=== PATIENT | male | born 1960 | race Two or more races ===

== ENCOUNTER 2021-06-15 01:43 | Emergency (ER) | payer BC, OTHER ==
[~2021-06-15] VITALS: Ht 172.7 cm; Wt 106.6 kg
[2021-06-15] MEDS ORDERED: MORPHINE SULFATE INJECTION 2 MG/ML SYRG IM ONE (07:15)
[2021-06-15] MEDS ORDERED: PROMETHAZINE HCL 25 MG/ML 1ML IM ONE (07:15)
[2021-06-15] MEDS ORDERED: MORPHINE SULFATE 4 MG/ML SYR/VIAL IV ONE (07:30)
[2021-06-15] MEDS ORDERED: ONDANSETRON HCL 4 MG/2 ML VIAL IV ONE (07:30)
[2021-06-15] MEDS ORDERED: PRED20TA2 PO (08:24)
[2021-06-15] MEDS ORDERED: MORPHINE SULFATE INJECTION 2 MG/ML SYRG IV ONE (08:30)
[2021-06-15 08:35] VITALS: BP 138/88
== END 2021-06-15 09:13 | disposition home or self-care (01) ==
LOC: ER 01:43
DX: G89.29 Other chronic pain (principal); M54.59 Other low back pain
CPT/HCPCS: 96374; 96375; 96376; 99284; J2270; J2405

== ENCOUNTER 2022-09-22 14:56 | Emergency (ER) | payer BC ==
[~2022-09-22] VITALS: Ht 172.7 cm; Wt 104.0 kg
[~2022-09-22 14:56] MED LIST: PRED20TA2 PO
[2022-09-22] MEDS ORDERED: LIDO5DIS21 TOP (17:08)
[2022-09-22] MEDS ORDERED: CYCL-839 PO (17:08)
[2022-09-22] MEDS ORDERED: IBUP600T28 PO (17:08)
[2022-09-22] MEDS ORDERED: MORPHINE SULFATE 4 MG/ML SYR/VIAL IM ONE (17:15)
[2022-09-22] MEDS ORDERED: ONDANSETRON ODT 4 MG TAB PO ONE (17:15)
[2022-09-22 17:41] VITALS: BP 144/84
[2022-09-22] MEDS ORDERED: KETOROLAC TROMETH 30 MG/ML 1ML VIAL IM ONE (18:30)
[2022-09-22] MEDS ORDERED: HYDROcodone-ACET 10/325MG TAB PO ONE (18:30)
[2022-09-22] MEDS ORDERED: HYDR-4902 PO (19:15)
== END 2022-09-22 19:17 | disposition home or self-care (01) ==
LOC: ER 14:56
DX: G89.29 Other chronic pain (principal); M54.50 Low back pain, unspecified; Z88.6 Allergy status to analgesic agent
CPT/HCPCS: 72100; 96372; 99284; J1885; J2270; Q0162

== ENCOUNTER 2024-04-06 13:37 | Emergency (ER) | payer BC ==
[~2024-04-06] VITALS: Ht 172.7 cm; Wt 105.0 kg
[~2024-04-06 13:37] MED LIST changes: +CYCL-839 PO; +HYDR-4902 PO; +IBUP1TAB5 PO; +LIDO5DIS21 TOP
[2024-04-06 14:35] LABS: Basophils # (auto) 0.1 10 ^3/uL (0-0.2); Basophils % (auto) 0.8 % (0.0-2.0); Eosinophils # (auto) 0.3 10 ^3/uL (0-0.8); Eosinophils % (auto) 4.8 % (0.0-7.0); Hematocrit 42.8 % (41.0-53.0); Hemoglobin 14.7 g/dL (13.5-17.5); Lymphocytes # (auto) 2.2 10 ^3/uL (0.4-5.4); Mean Corpuscular Hgb Conc. 34.4 g/dL (32.0-36.0); Mean Corpuscular Volume 90.2 fL (80.0-100.0); Monocytes # (auto) 0.7 10 ^3/uL (0-1.3); Monocytes % (auto) 10.1 % (0.0-12.0); Neutrophils # (auto) 3.7 10 ^3/uL (1.6-8.6); Neutrophils % (auto) 53.3 % (37.0-80.0); Platelet Count (auto) 202 10^3/uL (140-450); Red Blood Cells 4.74 10^6/uL (4.5-5.90); Red Cell Distribution Width 13.3 % (11.8-14.3)
[2024-04-06 14:44] LABS: Chloride 104 mmol/L (98-107); Potassium 4.2 mmol/L (3.5-5.1); Sodium 136 mmol/L (136-145)
[2024-04-06 14:45] LABS: Anion Gap 7 (5-15); Carbon Dioxide 25 mmol/L (20-31)
[2024-04-06 14:46] LABS: Calcium 10.3 mg/dL (8.7-10.4)
[2024-04-06 14:51] LABS: BUN/Creatinine Ratio 13.5 (10.0-20.0); Blood Urea Nitrogen 14 mg/dL (9-23); Glucose 120 mg/dL (74-106)
[2024-04-06 18:14] LABS: Urine Bacteria None Seen /hpf (None Seen)
[2024-04-06 18:16] VITALS: BP 130/78; PULSE 86; RESP 16; TEMP 98.2; O2SAT 96
[2024-04-06 18:40] LABS: Urine Blood Negative /uL (Negative); Urine Clarity Clear (Clear); Urine Color Yellow (Yellow); Urine Mucus FEW (None Seen); Urine Protein, UAD 1+ (Negative); Urine Specific Gravity 1.029 (1.001-1.035); Urine Urobilinogen 2 mg/dL (Negative); Urine WBC 3 /hpf (0 - 3)
== END 2024-04-06 20:00 | disposition left against medical advice (07) ==
LOC: ER 13:37
DX: K40.20 Bilateral inguinal hernia, without obstruction or gangrene, not specified as recurrent (principal); K42.9 Umbilical hernia without obstruction or gangrene; F17.210 Nicotine dependence, cigarettes, uncomplicated; Z79.52 Long term (current) use of systemic steroids
CPT/HCPCS: 36415; 74176; 80048; 81001; 85025

== ENCOUNTER 2025-04-07 14:22 | Inpatient (IN) | payer MEDICAID ==
[~2025-04-07] VITALS: Ht 172.7 cm; Wt 108.5 kg
--- NOTE | 2025-04-07 15:14 | DVH ---
CLINICAL HISTORY: tia TECHNIQUE: Helical scanning was performed of the head from the skull base to the vertex. Multiplanar reconstructions were performed. This exam was performed according to our departmental dose optimizat ion program. Up-to-date CT equipment and radiation dose reduction techniques are utilized as appropri ate. CTDI 64 DLP 1262 COMPARISON: None FINDINGS: There is no evidence for acute intracranial hemorrhage, acute ischemic changes, mass, mass effect, or extra-axial fluid collection. There is no hydrocephalus or midline shift. There is no effacement of the cerebral sulci and basal subarachnoid cisterns. The saunders-white matter differentiation is well ana ntained. The imaged paranasal sinuses are clear. IMPRESSION: NO ACUTE INTRACRANIAL ABNORMALITY SEEN.
--- NOTE | 2025-04-07 15:24 | ED.PDOC ---
Eye-HPI HPI Comments This is a 64 year-old male with a Hx of HTN, accompanied by daughter, presents to the ED with a chief complaint of blurred vision and dizziness as of yesterday. Patient reports additional symptoms of tremors but reports its likely due to back pain and medications S/P back surgery. Patient has no further complaints at this time and otherwise denies symptoms of migraine, chest pain, palpitations, SOB, fever, chills, or N/V/D. Chief Complaint: Eye Problem Time Seen by MD: 14:39 Primary Care Provider: MATTI MEDELLIN Reviewed Notes: Nurses Notes, Medications, Allergies Allergies: Coded Allergies: NO KNOWN ALLERGIES (Unverified , 06/15/21) Home Meds Active Scripts Hydrocodone-Acetaminophen (Hydrocodone Bitartrate/AC 5-325 mg) 1 Tab Tab, 1 TAB PO BID PRN for 2 Days, #4 TAB 0 Refills Prov:[facility] 09/22/22 Ibuprofen Micronized (Ibuprofen) 600 Mg Tab, 600 MG PO Q8HPRN PRN, #30 TAB 0 Refills Prov:[facility] 09/22/22 Lidocaine (LIDODERM 5% TOPICAL PATCH) 1 Patch Ph, 1 PATCH TOP DAILY PRN, #30 PATCH 1 Refill Prov:[facility] 09/22/22 Cyclobenzaprine Hcl (Cyclobenzaprine Hcl) 10 Mg Tab, 10 MG PO TID, #12 TAB 0 Refills Prov:[facility] 09/22/22 Prednisone (Prednisone) 20 Mg Tab, 40 MG PO DAILY for 10 Days, #20 MG Prov:GEMMA BUSCH 06/15/21 Information Source: Patient Mode of Arrival: Ambulatory Timing: Days Duration: Since onset Eye Location: Bilateral Onset: Spontaneous Associated signs and symptoms: Other (Blurred Vision ) Past Medical History PAST MEDICAL HISTORY: HTN Surgical History (Other): Back Surgery Family History Family History: Reviewed,noncontributory to illness Social History Smoker: Cigarettes Alcohol: Occasionally Drugs: Denies Drug Use Lives In: Home Constitutional: denies: chills, diaphoresis, fatigue, fever, malaise, sweats, weakness, others EENTM: reports: blurred vision; denies: double vision, ear bleeding, ear discharge, ear drainage, ear pain, ear ringing, eye pain, eye redness, hearing loss, mouth pain, mouth swelling, nasal discharge, nose bleeding, nose congestion, nose pain, photophobia, tearing, throat pain, throat swelling, voice changes, others Respiratory: denies: cough, hemoptysis, orthopnea, SOB at rest, shortness of breath, SOB with excertion, stridor, wheezing, others Cardiovascular: denies: chest pain, dizzy spells, diaphoresis, Dyspnea on exertion, edema, irregular heart beat, left arm pain, lightheadedness, palpitations, PND, syncope, others Gastrointestinal: denies: abdomen distended, abdominal pain, blood streaked bowels, constipated, diarrhea, dysphagia, difficulty swallowing, hematemesis, melena, nausea, poor appetite, poor fluid intake, rectal bleeding, rectal pain, vomiting, others Genitourinary: denies: burning, dysuria, flank pain, frequency, hematuria, incontinence, penile discharge, penile sore, pain, testicle pain, testicle swelling, urgency, others Neurological: denies: dizziness, fainting, headache, left sided numbness, left sided weakness, numbness, paresthesia, pre-existing deficit, right sided numbness, right sided weakness, seizure, speech problems, tingling, tremors, weakness, others Musculoskeletal: denies: back pain, gout, joint pain, joint swelling, muscle pain, muscle stiffness, neck pain, others Integumetry: denies: bruises, change in color, change in hair/nails, dryness, laceration, lesions, lumps, rash, wounds, others Allergic/Immunocompromised: denies: Difficulty Healing, Frequent Infections, Hives, Itching, others Hematologic/Lymphatic: denies: anemia, blood clots, easy bleeding, easy bruising, swollen glands, others Endocrine: denies: excessive hunger, excessive sweating, excessive thirst, excessive urination, flushing, intolerance to cold, intolerance to heat, unexplained weight gain, unexplained weight loss, others Psychiatric: denies: anxiety, bipolar disorder, depression, hopeless, panic disorder, schizophrenia, sleepless, suicidal, others All Other Systems: Reviewed and Negative Physical Exam General Appearance: Moderate Distress HEENT: Normal ENT Inspection, Pharynx Normal, TMs Normal Neck: Full Range of Motion, Non-Tender, Normal, Normal Inspection Respiratory: Chest Non-Tender, Lungs Clear, No Accessory Muscle Use, No Respiratory Distress, Normal Breath Sounds Cardiovascular: No Edema, No JVD, No Murmur, No Gallop, Normal Peripheral Pulses, Regular Rate/Rhythm Breast Exam: Deferred Gastrointestinal: No Organomegaly, Non Tender, No Pulsatile Mass, Normal Bowel Sounds, Soft Genitalia: Deferred Pelvic: Deferred Rectal: Deferred Extremities: No calf tenderness, Normal capillary refill, Normal inspection, Normal range of motion, Non-tender, No pedal edema Musculoskeletal : Apperance: Normal Neurologic: Alert, 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 Was a procedure done?: No EENT DIFF Eye: Allergic, Bacterial, Viral, Corneal Abrasion X-Ray, Labs, Meds, VS Vital Signs Date Time Temp Pulse Resp B/P (MAP) Pulse Ox O2 Delivery O2 Flow Rate FiO2 04/07/25 16:30 80 18 96 Room Air* 0 21 04/07/25 16:30 98.2 80 18 131/80 (97) 96 98.2 04/07/25 16:26 80 18 131/80 (97) 96 04/07/25 14:24 99.3 64 18 139/74 98 99.3 Lab Test 04/07/25 15:15 Range/Units White Blood Count 7.8 4.4-10.8 10^3/uL Red Blood Count 4.80 4.5-5.90 10^6/uL Hemoglobin 14.7 13.5-17.5 g/dL Hematocrit 42.8 41.0-53.0 % Mean Corpuscular Volume 89.2 80.0-100.0 fL Mean Corpuscular Hemoglobin 30.7 28.0-32.0 pg Mean Corpuscular Hemoglobin Concent 34.4 32.0-36.0 g/dL Red Cell Distribution Width 13.5 11.8-14.3 % Platelet Count 188 140-450 10^3/uL Mean Platelet Volume 10.9 H 6.9-10.8 fL Neutrophils (%) (Auto) 68.4 37.0-80.0 % Lymphocytes (%) (Auto) 24.1 10.0-50.0 % Monocytes (%) (Auto) 6.1 0.0-12.0 % Eosinophils (%) (Auto) 0.5 0.0-7.0 % Basophils (%) (Auto) 0.9 0.0-2.0 % Neutrophils # (Auto) 5.3 1.6-8.6 10 ^3/uL Lymphocytes # (Auto) 1.9 0.4-5.4 10 ^3/uL Monocytes # (Auto) 0.5 0-1.3 10 ^3/uL Eosinophils # (Auto) 0 0-0.8 10 ^3/uL Basophils # (Auto) 0.1 0-0.2 10 ^3/uL Nucleated Red Blood Cells 0.0 % Sodium Level 138 136-145 mmol/L Potassium Level 4.1 3.5-5.1 mmol/L Chloride Level 106 98-107 mmol/L Carbon Dioxide Level 20 20-31 mmol/L Anion Gap 12 5-15 Blood Urea Nitrogen 21 9-23 mg/dL Creatinine 1.04 0.700-1.30 mg/dL Glomerular Filtration Rate Calc 80 >90 mL/min BUN/Creatinine Ratio 20.2 H 10.0-20.0 Serum Glucose 99 74-106 mg/dL Calcium Level 9.8 8.7-10.4 mg/dL Troponin I High Sensitivity 5 </=54 ng/L [place] [id number] Ph: [phone] DIAGNOSTIC IMAGING Diagnostic Imaging Report : [id number] Signed PATIENT: ERIC THOMAS ACCT: [id number] UNIT: [id number] : 1960 LOC: ER ROOM / BED: / AGE / SEX: 64 / M ADM STATUS: REG ER SERVICE [id number] ORDERING PHYSICIAN: ELDER HOBBS MD PROCEDURE(s): HWOCT - HEAD WITHOUT CONTRAST REASON: tia ORDER NUMBER(s): [id number], ACCESSION NUMBER(s): [id number] CLINICAL HISTORY: tia TECHNIQUE: Helical scanning was performed of the head from the skull base to the vertex. Multiplanar reconstructions were performed. This exam was performed according to our departmental dose optimization program. Up-to-date CT equipment and radiation dose reduction techniques are utilized as appropriate. CTDI 64 DLP 1262 COMPARISON: None FINDINGS: There is no evidence for acute intracranial hemorrhage, acute ischemic changes, mass, mass effect, or extra-axial fluid collection. There is no hydrocephalus or midline shift. There is no effacement of the cerebral sulci and basal subarachnoid cisterns. The saunders-white matter differentiation is well maintained. The imaged paranasal sinuses are clear. IMPRESSION: NO ACUTE INTRACRANIAL ABNORMALITY SEEN. Patient alert. Complaining of dizziness. CT of the head reviewed does not show any acute process. Vitals stable. Answering questions. Has good muscle strength. Possible TIA. Possibly will need MRI. Explained to the family. Continue monitoring. Time of 1ST Reevaluation: 15:46 Reevaluation 1ST: Unchanged Patient Education/Counseling: Diagnosis, Treatment Family Education/Counseling: Diagnosis, Treatment SEPSIS Sepsis Screen Date sepsis recognized/suspect: Apr 07, 2025 Time Sepsis recognized/suspect: 5 Recent Procedure: No On Antibiotic Therapy: No Respiratory Rate >20: No Heart Rate >90: No Temp<36 C (96.8 F) or >38.3 C: No SBP <90 or MAP <65 mmHG: No New Acute Mental Status Change: No Is the patient on CPAP, BIPAP,: No Physician Orders Head Without Contrast (04/07/25 14:46) Vital Signs Date Time Temp Pulse Resp B/P (MAP) Pulse Ox O2 Delivery O2 Flow Rate FiO2 04/07/25 16:30 80 18 96 Room Air* 0 21 04/07/25 16:30 98.2 80 18 131/80 (97) 96 98.2 04/07/25 16:26 80 18 131/80 (97) 96 04/07/25 14:24 99.3 64 18 139/74 98 99.3 Laboratory Tests Test 04/07/25 15:15 White Blood Count 7.8 10^3/uL (4.4-10.8) Departure 1 Departure Time of Disposition: 17:15 Impression: Primary Impression: TIA (transient ischemic attack) Additional Impression: Autonomic disorder Disposition: ADMITTED INPATIENT Admit to: Med Surg Condition: Guarded Critical Care Note Critical Care Time?: No Stability Stability form required: No Heart Score Heart Score: Heart Score Response (Comments) Value History N/A 0 EKG N/A 0 Age N/A 0 Risk Factors N/A 0 Troponin N/A 0 Total 0 I personally scribed for ELDER HOBBS MD ([email or web address]) on 04/07/25 at 15:24. Electronically submitted by Kerline Hsu (Transmit Promo). I personally scribed for ELDER HOBBS MD ([email or web address]) on 04/07/25 at 17:02. Electronically submitted by Kerline Hsu (Transmit Promo). ELDER HOBBS MD Apr 07, 2025 15:24
[2025-04-07 16:30] VITALS: PULSE 80; RESP 18; O2SAT 96
[2025-04-07 16:31] LABS: Hematocrit 42.8 % (41.0-53.0); Hemoglobin 14.7 g/dL (13.5-17.5); Mean Corpuscular Hemoglobin 30.7 pg (28.0-32.0); Mean Corpuscular Volume 89.2 fL (80.0-100.0); Nucleated Red Blood Cells % 0.0 %
[2025-04-07 16:41] LABS: Chloride 106 mmol/L (98-107); Potassium 4.1 mmol/L (3.5-5.1); Sodium 138 mmol/L (136-145)
[2025-04-07 16:42] LABS: Anion Gap 12 (5-15); Calcium 9.8 mg/dL (8.7-10.4)
[2025-04-07 16:47] LABS: BUN/Creatinine Ratio 20.2 (10.0-20.0); Blood Urea Nitrogen 21 mg/dL (9-23); Glucose 99 mg/dL (74-106)
[2025-04-07 16:54] LABS: Carbon Dioxide 20 mmol/L (20-31)
[2025-04-07] MEDS ORDERED: ONDANSETRON HCL 4 MG/2 ML VIAL IV PRN (20:30)
[2025-04-07 21:11] LABS: Alkaline Phosphatase 79 U/L (46-116); Magnesium 2.3 mg/dL (1.6-2.6)
[2025-04-07 21:12] LABS: Bilirubin, Direct 0.1 mg/dL (<0.3); Bilirubin, Total 0.4 mg/dL (0.2-1.0)
[2025-04-07 21:23] LABS: Alanine Aminotransferase 65 U/L (7-40); Albumin 5.0 g/dL (3.2-4.8); Total Protein 8.2 g/dL (5.7-8.2)
--- NOTE | 2025-04-07 22:30 | DVH ---
Carotid Duplex Clinical History: decreased blurry vision, rule out stenosis Comparison: None Technique: Duplex Doppler evaluation of the extracranial carotid and vertebral arteries including color Doppler and spectral/pulsed waveform analysis was performed. Findings: RIGHT SIDE: The peak systolic velocities are 106 cm/s in the CCA, 83 cm/s in the ICA. The ICA/CCA ratio is 0.9. The external carotid artery is patent with peak systolic velocity of 130 cm/s proximally. There is appropriate antegrade flow in the right vertebral artery. LEFT SIDE: The peak systolic velocities are 94 cm/s in the CCA, 86 cm/s in the ICA. The ICA/CCA ratio is 0.9. The external carotid artery is patent with peak systolic velocity of 97 cm/s proximally. There is appropriate antegrade flow in the left vertebral artery. IMPRESSION: 1. No hemodynamically significant stenosis noted in the right carotid system. 2. No hemodynamically significant stenosis noted in the left carotid system. Reference: Radiology 2003; 229:340-346 Normal ICA PSV is <125 cm/sec and no plaque or intimal thickening is visible sonographically addition al criteria include ICA/CCA PSV ratio <2.0 and ICA EDV <40 cm/sec <50% ICA stenosis ICA PSV is <125 cm/sec and plaque or intimal thickening is visible sonographically additional criteria include ICA/CCA PSV ratio <2.0 and ICA EDV <40 cm/sec 50-69% ICA stenosis ICA PSV is 125-230 cm/sec and plaque is visible sonographically additional criter ia include ICA/CCA PSV ratio of 2.0-4.0 and ICA EDV of 40-100 cm/sec 70% ICA stenosis but less than near occlusion ICA PSV is >230 cm/sec and visible plaque and luminal narrowing are seen at saunders-scale and color Doppler ultrasound (the higher the Doppler parameters lie above the threshold of 230 cm/sec, the greater the likelihood of severe disease) additional criteria include ICA/CCA PSV ratio >4 and ICA EDV >100 cm/sec
[2025-04-07 23:46] VITALS: BP 117/68; PULSE 55; RESP 20; TEMP 98.3; O2SAT 95; O2SAT 96
[2025-04-08] VITALS (10 sets, daily range): BP systolic 114–128; BP diastolic 66–88; PULSE 51–77; RESP 17–18; TEMP 97.1–98.6; O2SAT 95–98
--- NOTE | 2025-04-08 | DVHHPRES ---
History of Present Illness Resident Creating Document: ANTHONY AMIN RESIDENT History of Present Illness This is a 64-year-old male with a past medical history of hypertension(has not take medication in the last 3 weeks as daughter is a nurse and checks BP- has been on the lower side), chronic back pain for which surgery has been done 2 years ago, surgical history of umbilical hernia repair, came with chief complaints of blurring of vision, tremors at rest and slight dizziness. Patient reports that the blurring of vision began yesterday when he was working and has remained till today, associated with slight dizziness and reports it was worsening which prompted him to visit the emergency room. He reports that his symptoms have no aggravating or relieving factors. On inquiry, patient states that the only medication he has been taking is tramadol for his back pain and the new medication he has started was 1 month ago for insomnia which was zolpidem, given by his son. Patient has been taking 3 tablets of zolpidem per night. On inquiry if he takes any cyclobenzaprine, patient denied it. He denies any fever, chills, nausea, vomiting, slurring of speech, weakness in any part of the body, shortness of breath, ringing of ears, change in bowel or bladder habits and his recent travel was 3 months ago to [place]. On arrival, vitals were normal, troponin negative, WBC and BMP were normal. We are admitting the patient for further investigation, workup and management. Past medical history: As stated above Past surgical history: As stated above family history: Denies any Social history: drink 6 beers on the weekend and 4 cigarettes on the weekend, denies any illicit drug abuse Allergies: None Home medication: Tramadol, multivitamins and zolpidem PCP: Does not have one Code status: Full code Review of Systems Constitutional: Yes: Other (resting tremors); No: Fever, Chills, Sweats, Weakness, Malaise Eyes: Vision change; No: Pain, Conjunctivae inflammation, Eyelid inflammation, Other, Redness ENT: No: Ear pain, Ear discharge, Nose pain, Nose discharge, Nose congestion, Mouth pain, Mouth swelling, Throat pain, Throat swelling, Other Respiratory: No: Cough, Dry, Shortness of breath, SOB with excertion, Wheezing, Hemoptysis, Pleuritic Pain, Sputum, Wheezing, Other Gastrointestinal: No: Nausea, Vomiting, Abdominal Pain, Diarrhea, Constipation, Melena, Hematochezia, Other Genitourinary: No Dysuria, No Frequency, No Incontinence, No Hematuria, No Retention, No Other Musculoskeletal: No: other, neck pain, shoulder pain, arm pain, back pain, hand pain, leg pain, foot pain Skin: No: Rash, Lesions, Jaundice, Bruising, Other Neurological: No: Weakness, Numbness, Incoordination, Change in speech, Confusion, Seizures, Other Allergies: Coded Allergies: NO KNOWN ALLERGIES (Unverified , 06/15/21) Medications Current Medications Medications Dose Ordered Sig/Ashvin Route Start Time Stop Time Status Last Admin Dose Admin Ondansetron HCl 4 mg Q4HP PRN IV 04/07/25 20:30 Exam Vital Signs Vital Signs Date Time Temp Pulse Resp B/P (MAP) Pulse Ox O2 Delivery O2 Flow Rate FiO2 04/07/25 22:16 98.1 60 18 141/69 (93) 98 98.1 04/07/25 16:30 Room Air* 0 21 Exam General Appearance: Alert, Oriented X3, Cooperative, Not in acute distress HEENT: Atraumatic, Mucous membranes moist/pink Respiratory: Clear to auscultation, Normal air movement, No added sounds Cardiovascular: Regular rate, Normal S1, Normal S2, No murmurs Abdominal: Active bowel sounds, Soft, no distention, no tenderness Extremities: No edema, Normal pulses, No tenderness/swelling, slight tremor noted at rest Skin: No Significant rash, except past surgical scars Neuro: Normal speech, sensorimotor deficits none,HINTS test negative Psych/Mental Status: Mental status NL, Mood NL Labs/Xrays Labs Test 04/07/25 15:15 Range/Units White Blood Count 7.8 4.4-10.8 10^3/uL Red Blood Count 4.80 4.5-5.90 10^6/uL Hemoglobin 14.7 13.5-17.5 g/dL Hematocrit 42.8 41.0-53.0 % Mean Corpuscular Volume 89.2 80.0-100.0 fL Mean Corpuscular Hemoglobin 30.7 28.0-32.0 pg Mean Corpuscular Hemoglobin Concent 34.4 32.0-36.0 g/dL Red Cell Distribution Width 13.5 11.8-14.3 % Platelet Count 188 140-450 10^3/uL Mean Platelet Volume 10.9 H 6.9-10.8 fL Neutrophils (%) (Auto) 68.4 37.0-80.0 % Lymphocytes (%) (Auto) 24.1 10.0-50.0 % Monocytes (%) (Auto) 6.1 0.0-12.0 % Eosinophils (%) (Auto) 0.5 0.0-7.0 % Basophils (%) (Auto) 0.9 0.0-2.0 % Neutrophils # (Auto) 5.3 1.6-8.6 10 ^3/uL Lymphocytes # (Auto) 1.9 0.4-5.4 10 ^3/uL Monocytes # (Auto) 0.5 0-1.3 10 ^3/uL Eosinophils # (Auto) 0 0-0.8 10 ^3/uL Basophils # (Auto) 0.1 0-0.2 10 ^3/uL Nucleated Red Blood Cells 0.0 % Erythrocyte Sedimentation Rate 15 0-20 mm/hr Sodium Level 138 136-145 mmol/L Potassium Level 4.1 3.5-5.1 mmol/L Chloride Level 106 98-107 mmol/L Carbon Dioxide Level 20 20-31 mmol/L Anion Gap 12 5-15 Blood Urea Nitrogen 21 9-23 mg/dL Creatinine 1.04 0.700-1.30 mg/dL Glomerular Filtration Rate Calc 80 >90 mL/min BUN/Creatinine Ratio 20.2 H 10.0-20.0 Serum Glucose 99 74-106 mg/dL Calcium Level 9.8 8.7-10.4 mg/dL Magnesium Level 2.3 1.6-2.6 mg/dL Total Bilirubin 0.4 0.2-1.0 mg/dL Direct Bilirubin 0.1 <0.3 mg/dL Aspartate Amino Transferase (AST) 35 13-40 U/L Alanine Aminotransferase (ALT) 65 H 7-40 U/L Alkaline Phosphatase 79 46-116 U/L Troponin I High Sensitivity 5 </=54 ng/L Total Protein 8.2 5.7-8.2 g/dL Albumin 5.0 H 3.2-4.8 g/dL Thyroid Stimulating Hormone (TSH) 3.02 0.55-4.78 uIU/mL Plasma/Serum Blood Alcohol < 3.0 <10 mg/dL SEPSIS Sepsis Screen Date sepsis recognized/suspect: Apr 07, 2025 Time Sepsis recognized/suspect: 1629 Recent Procedure: No On Antibiotic Therapy: No Respiratory Rate >20: No Heart Rate >90: No Temp<36 C (96.8 F) or >38.3 C: No SBP <90 or MAP <65 mmHG: No New Acute Mental Status Change: No Is the patient on CPAP, BIPAP,: No Physician Orders Admit (04/07/25 20:28) Code Status (04/07/25 20:28) Ondansetron Hcl (Zofran) (04/07/25 20:30) Complete Blood Count (04/08/25 04:00) Comprehensive Metabolic Panel (04/08/25 04:00) Cardiac Diet-2gna,Lofat,Lochol (04/08/25 Breakfast) Condition: Fair (04/07/25 20:28) Notify Md Of Changes From Base (04/07/25 20:28) Stat Ekg For Chest Pain (04/07/25 20:28) Drug Screen (04/07/25 20:28) Urinalysis (04/07/25 20:28) Orthostatic Vital Signs (04/07/25 20:28) Carotid Duplx W Color Dop (04/07/25 20:28) Vital Signs Date Time Temp Pulse Resp B/P (MAP) Pulse Ox O2 Delivery O2 Flow Rate FiO2 04/07/25 22:16 98.1 60 18 141/69 (93) 98 98.1 04/07/25 22:06 98.1 60 18 141/69 (93) 98 98.1 04/07/25 19:29 98.2 65 18 124/85 (98) 97 98.2 04/07/25 16:30 80 18 96 Room Air* 0 21 04/07/25 16:30 98.2 80 18 131/80 (97) 96 98.2 04/07/25 16:26 80 18 131/80 (97) 96 Laboratory Tests Test 04/07/25 15:15 White Blood Count 7.8 10^3/uL (4.4-10.8) Assessment/Plan Assessment/Plan # Possible TIA # blurred vision and dizziness due to medication overuse # insomnia - zolpidem stopped - Melatonin 10 mg p.o. once - given the patient's age, suggested ERIN ramelteon or melatonin as home medication for insomnia - IV Zofran 4 mg q.4 PRN - CT head without contrast shows no acute intracranial abnormality - orthostatic vitals - Carotid Doppler shows no hemodynamically significant stenosis noted in the right or left carotid system - TSH 3.02 - ESR 15 - Serum alcohol <3 - UDS, UA - consider brain MRI if symptoms not approved #chronic back pain -Dilaudid 0.25mg Q4 prn #Morbid obesity, BMI 34.9 -patient was counseled regarding need of weight loss, healthy lifestyle modification, dietary changes for over 8 minutes DVT prophylaxis: Patient ambulating Diet: cardiac diet Goals of care discussed with the patient for more than 27 minutes: Full code status Case discussed with Dr. Vinson, patient Plan discussed with: Patient My Orders Orders - ANTHONY AMIN Procedure Category Date Status Time Admit ADMIT 04/07/25 Transmitted 20:28 Code Status CODE 04/07/25 Transmitted 20:28 Ondansetron Hcl PHA 04/07/25 In Process (Zofran) 20:30 Complete Blood Count LAB 04/08/25 Verified 04:00 Comprehensive LAB 04/08/25 Verified Metabolic Panel 04:00 Cardiac DIET 04/08/25 Transmitted Diet-2gna,Lofat,Lochol Breakfast Condition: Fair BEREKET 04/07/25 In Process 20:28 Notify Of Changes BEREKET 04/07/25 In Process From Base 20:28 Stat Ekg For Chest BEREKET 04/07/25 In Process Pain 20:28 Drug Screen LAB 04/07/25 Logged 20:28 Urinalysis LAB 04/07/25 Logged 20:28 Orthostatic Vital ORDERS 04/07/25 Transmitted Signs 20:28 Carotid Duplx W Color US 04/07/25 Resulted DOP 20:28 Date of Service: Apr 08, 2025 Billing Provider: KATT VINSON MD, SREYA RESIDENT Apr 08, 2025 00:00
[2025-04-08] MEDS: MELATONIN 5 MG TAB PO ONE (02:45)
[2025-04-08] MEDS: HYDROmorphone HCL 2 MG/ML VL/or syr IV PRN (03:12)
[2025-04-08 12:53] LABS: Albumin 4.4 g/dL (3.2-4.8); Alkaline Phosphatase 69 U/L (46-116); Anion Gap 11 (5-15); BUN/Creatinine Ratio 16.9 (10.0-20.0); Blood Urea Nitrogen 14 mg/dL (9-23); Calcium 9.3 mg/dL (8.7-10.4); Carbon Dioxide 23 mmol/L (20-31); Chloride 106 mmol/L (98-107); Glucose 94 mg/dL (74-106); Potassium 4.2 mmol/L (3.5-5.1); Sodium 140 mmol/L (136-145); Total Protein 7.2 g/dL (5.7-8.2)
[2025-04-08 12:54] LABS: Bilirubin, Total 0.6 mg/dL (0.2-1.0)
[2025-04-08 12:58] LABS: Alanine Aminotransferase 63 U/L (7-40)
[2025-04-08 14:00] LABS: Hematocrit 44.7 % (41.0-53.0); Hemoglobin 15.1 g/dL (13.5-17.5); Mean Corpuscular Hemoglobin 30.4 pg (28.0-32.0); Mean Corpuscular Volume 90.1 fL (80.0-100.0); Nucleated Red Blood Cells % 0.1 %
--- NOTE | 2025-04-08 17:03 | DVH ---
EXAM: MRI BRAIN HEAD WO CONTRAST INDICATION: r/o TIA TECHNIQUE: Multiplanar, multisequence imaging of the brain without contrast. COMPARISON: CT HEAD WITHOUT CONTRAST on DOS: 04/07/25 FINDINGS: [PARENCHYMA]: No acute infarct or hemorrhage. No mass effect or herniation. No abnormal susceptibilit y weighted artifact. [VENTRICLES]: No hydrocephalus. [EXTRA-AXIAL SPACES]: No extra-axial fluid collections. [EXTRA-CRANIAL STRUCTURES]: The bony structures are intact. IMPRESSION: 1. No MR evidence of an acute infarction.
[2025-04-08] MEDS: HYDROcodone-ACET 10/325MG TAB PO PRN (17:45)
--- NOTE | 2025-04-08 18:03 | DVHPN2 ---
Subjective I am assuming the care of the patient from today onwards. Patient complaining of some dizziness blurry vision but so resolved. Reviewed: Care Plan Changes from previous H/P or p: No Changes Eyes: No Pain; Vision change; No Conjunctivae inflammation, No Eyelid inflammation, No Other, No Redness ENT: No Ear pain, No Ear discharge, No Nose pain, No Nose discharge, No Nose congestion, No Mouth pain, No Mouth swelling, No Throat pain, No Throat swelling, No Other Respiratory: No Cough, No Dry, No Shortness of breath, No SOB with excertion, No Wheezing, No Hemoptysis, No Pleuritic Pain, No Sputum, No Other Gastrointestinal: No Nausea, No Vomiting, No Abdominal Pain, No Diarrhea, No Constipation, No Melena, No Hematochezia, No Other Genitourinary: No Dysuria, No Frequency, No Incontinence, No Hematuria, No Retention, No Other Musculoskeletal: No other, No neck pain, No shoulder pain, No arm pain, No back pain, No hand pain, No leg pain, No foot pain Skin: No Rash, No Lesions, No Jaundice, No Bruising, No Other Objective Vitals Vital Signs Date Time Temp Pulse Resp B/P (MAP) Pulse Ox O2 Delivery O2 Flow Rate FiO2 04/08/25 17:00 98.2 63 18 122/74 (90) 96 98.2 04/08/25 08:00 Room Air* 0 21 Intake/Output Intake and Output 04/08/25 07:00 Intake Total 200 ml Balance 200 ml Intake Oral 200 ml # Voids 1 Exam HEENT pupils are reactive Neck is supple CV is S1-S2 regular rate and rhythm Diminished BS on bases neck GI positive bowel sound Extremity no edema [employer] no motor deficit Medications Current Medications Medications Dose Ordered Sig/Ashvin Route Start Time Stop Time Status Last Admin Dose Admin Ondansetron HCl 4 mg Q4HP PRN IV 04/07/25 20:30 Hydromorphone HCl 0.25 mg Q4HPRN PRN IV 04/08/25 03:00 04/08/25 03:12 0.25 MG Trazodone HCl 50 mg HSPRN PO 04/08/25 22:00 Acetaminophen/ Hydrocodone Bitart 1 tab Q6HP PRN PO 04/08/25 16:30 04/08/25 17:45 1 TAB Laboratory Results Laboratory Tests 04/08/25 12:25 04/08/25 13:52 Chemistry Test 04/08/25 12:25 Albumin 4.4 g/dL (3.2-4.8) Calcium Level 9.3 mg/dL (8.7-10.4) Total Protein 7.2 g/dL (5.7-8.2) LFT Test 04/08/25 12:25 Alanine Aminotransferase (ALT) 63 U/L (7-40) H Alkaline Phosphatase 69 U/L (46-116) Aspartate Amino Transferase (AST) 32 U/L (13-40) Total Bilirubin 0.6 mg/dL (0.2-1.0) Assessment/Plan Assessment/Plan 64-year-old male with a known history of hypertension currently not on taking any medication as her blood pressure was running low, history of chronic back pain presented to the hospital with dizziness and blurry vision found to have 1. Dizziness and blurry vision suspect TIA 2. Rule out acute CVA 3. Hypertension 4. Chronic back pain 5. Morbid Obesity ClassII 6. Chronic insomnia -MRI brain noncontrast, discharge plan Plan discussed with: Patient My Orders Orders - ANTOINE MAYA MD Procedure Category Date Status Time Brain Head Wo Contrast MRI 04/08/25 Resulted 15:11 Trazodone Hcl PHA 04/08/25 In Process ([place]) 22:00 Hydrocodone-Acet PHA 04/08/25 In Process 10/325mg Tab ([place] 16:30 Date of Service: Apr 08, 2025 Billing Provider: ANTOINE MAYA MD Common Visit Codes: NOT BILLABLE ANTOINE MAYA MD Apr 08, 2025 18:03
[2025-04-09 05:00] VITALS: BP 107/60; PULSE 62; RESP 18; O2SAT 95
[2025-04-09 07:56] VITALS: PULSE 64
[2025-04-09 09:00] VITALS: BP 115/72; PULSE 57; RESP 16; TEMP 98.6; O2SAT 97
[2025-04-09 13:00] VITALS: BP 103/67; PULSE 65; RESP 16; TEMP 98.2; O2SAT 96
[2025-04-09] MEDS ORDERED: TRAZ-227 PO (15:17)
--- NOTE | 2025-04-09 15:20 | DVHDS2 ---
Discharge Summary Date of Admission Apr 07, 2025 at 20:28 Date of Discharge: Apr 09, 2025 Labs/Diagnostic Data: Laboratory Results Test 04/08/25 13:52 04/08/25 12:25 04/07/25 15:15 White Blood Count 7.0 10^3/uL (4.4-10.8) Red Blood Count 4.96 10^6/uL (4.5-5.90) Hemoglobin 15.1 g/dL (13.5-17.5) Hematocrit 44.7 % (41.0-53.0) Mean Corpuscular Volume 90.1 fL (80.0-100.0) Mean Corpuscular Hemoglobin 30.4 pg (28.0-32.0) Mean Corpuscular Hemoglobin Concent 33.7 g/dL (32.0-36.0) Red Cell Distribution Width 13.8 % (11.8-14.3) Platelet Count 192 10^3/uL (140-450) Mean Platelet Volume 10.1 fL (6.9-10.8) Neutrophils (%) (Auto) 60.7 % (37.0-80.0) Lymphocytes (%) (Auto) 30.3 % (10.0-50.0) Monocytes (%) (Auto) 6.5 % (0.0-12.0) Eosinophils (%) (Auto) 1.5 % (0.0-7.0) Basophils (%) (Auto) 1.0 % (0.0-2.0) Neutrophils # (Auto) 4.2 10 ^3/uL (1.6-8.6) Lymphocytes # (Auto) 2.1 10 ^3/uL (0.4-5.4) Monocytes # (Auto) 0.5 10 ^3/uL (0-1.3) Eosinophils # (Auto) 0.1 10 ^3/uL (0-0.8) Basophils # (Auto) 0.1 10 ^3/uL (0-0.2) Nucleated Red Blood Cells 0.1 % Sodium Level 140 mmol/L (136-145) Potassium Level 4.2 mmol/L (3.5-5.1) Chloride Level 106 mmol/L (98-107) Carbon Dioxide Level 23 mmol/L (20-31) Anion Gap 11 (5-15) Blood Urea Nitrogen 14 mg/dL (9-23) Creatinine 0.83 mg/dL (0.700-1.30) Glomerular Filtration Rate Calc 98 mL/min (>90) BUN/Creatinine Ratio 16.9 (10.0-20.0) Serum Glucose 94 mg/dL (74-106) Calcium Level 9.3 mg/dL (8.7-10.4) Total Bilirubin 0.6 mg/dL (0.2-1.0) Aspartate Amino Transferase (AST) 32 U/L (13-40) Alanine Aminotransferase (ALT) 63 U/L (7-40) Alkaline Phosphatase 69 U/L (46-116) Total Protein 7.2 g/dL (5.7-8.2) Albumin 4.4 g/dL (3.2-4.8) Erythrocyte Sedimentation Rate 15 mm/hr (0-20) Magnesium Level 2.3 mg/dL (1.6-2.6) Direct Bilirubin 0.1 mg/dL (<0.3) Troponin I High Sensitivity 5 ng/L (</=54) Thyroid Stimulating Hormone (TSH) 3.02 uIU/mL (0.55-4.78) Plasma/Serum Blood Alcohol < 3.0 mg/dL (<10) Other Laboratory Tests 04/08/25 13:52 04/08/25 12:25 Brief Hx & Hospital Course: 64-year-old male with a known history of hypertension currently not on taking any medication as her blood pressure was running low, history of chronic back pain presented to the hospital with dizziness and blurry vision found to have suspected TIA. CT head was negative. Carotid ultrasound shows no evidence of significant stenosis. MRI brain shows no evidence of any acute infarct. Patient is currently being discharged with recommendation for outpatient follow up with the PCP and started on baby aspirin 81 mg p.o. daily. Condition at Discharge: Stable Final Diagnosis/Problems List 64-year-old male with a known history of hypertension currently not on taking any medication as her blood pressure was running low, history of chronic back pain presented to the hospital with dizziness and blurry vision found to have 1. Dizziness and blurry vision suspect TIA 2. Ruled out acute CVA 3. Hypertension 4. Chronic back pain 5. Morbid Obesity ClassII 6. Chronic insomnia Discharge Disposition: Home SNF Discharge Will this Physician continue t: No Discharge Instruct/Medications Diet: Cardiac 2g Na,low cholest Activity: No Restrictions, As Tolerated Follow Up/Referral: Follow up with the PCP in 1-2 weeks Medications: Take baby aspirin 81 mg daily over the counter Scheduled Cyclobenzaprine Hcl (Cyclobenzaprine Hcl), 10 MG PO TID Prednisone (Prednisone), 40 MG PO DAILY Scheduled PRN Hydrocodone-Acetaminophen (Hydrocodone Bitartrate/AC 5-325 mg), 1 TAB PO BID PRN Ibuprofen Micronized (Ibuprofen), 600 MG PO Q8HPRN PRN Lidocaine (Lidoderm 5% Topical Patch), 1 PATCH TOP DAILY PRN Trazodone Hcl (Trazodone Hcl), 50 MG PO HSPRN PRN Discharge Statement: "Patient was advised to return to the ER or call 911 if any headaches, dizziness, shortness of breath, chest pain, abdominal pain, bleeding, fevers, or worsening of medical condition. Patient was counseled about treatment plan, medications, possible side effects, patientverbalized understanding. All questions were answered to the best of my ability. This discharge took greater then 30 minutes in planning, reviewing documentation, counseling the patient, and discussing with other team members." ASSESSMENT ASSESSMENT Assessment 64-year-old male with a known history of hypertension currently not on taking any medication as her blood pressure was running low, history of chronic back pain presented to the hospital with dizziness and blurry vision found to have 1. Dizziness and blurry vision suspect TIA 2. Ruled out acute CVA 3. Hypertension 4. Chronic back pain 5. Morbid Obesity ClassII 6. Chronic insomnia Date of Service: Apr 09, 2025 Billing Provider: ANTOINE MAYA MD Common Visit Codes: [id number]/OBS DISCH DAY >30min ANTOINE MAYA MD Apr 09, 2025 15:20
== END 2025-04-09 16:30 | disposition home or self-care (01) | DRG 47 ==
LOC: ER 14:22 → OVERFLOW 20:28 → TELE-CENTR 04-08 02:09
PROVIDERS: ATTEND Internal Medicine
DX: G45.9 Transient cerebral ischemic attack, unspecified (principal); E66.01 Morbid (severe) obesity due to excess calories; Z68.34 Body mass index [BMI] 34.0-34.9, adult; G89.29 Other chronic pain; F51.04 Psychophysiologic insomnia; I10 Essential (primary) hypertension; F17.210 Nicotine dependence, cigarettes, uncomplicated; M54.9 Dorsalgia, unspecified
CPT/HCPCS: 36415; 70450; 70551; 80048; 80053; 80076; 80320; 83735; 84443; 84484; 85025; 85652; 93886; G0378